=== PATIENT | female | born 1955 | race Caucasian/White ===

== ENCOUNTER → 2024-07-11 08:05 | Outpatient (REF) | payer MEDICARE, OTHER, SELFPAY | LOC: HWWDC 08:05 | PROVIDERS: ATTENDING PHYSICIAN Obstetrics & Gynecology Gynecology; FAMILY PHYSICIAN Family Medicine | DX: Z12.31 Encounter for screening mammogram for malignant neoplasm of breast (principal) | CPT/HCPCS: 77063; 77067 ==

== ENCOUNTER 2024-10-10 13:22 | Emergency (ER) | payer MEDICARE, OTHER, SELFPAY ==
[2024-10-10 13:25] VITALS: BP 168/99
[2024-10-10 15:09] VITALS: BMI 18.9
[2024-10-10 15:28] VITALS: BP 159/95
[2024-10-10 15:37] LABS: % Basophils 0.4 % (0-2); % Eosinophils 1.2 % (0-6); % Immature Granulocytes 0.5 % (0-0.5); % Lymphocytes 26.1 % (20.5-51.1); % Monocytes 10.9 % (1.7-9.3); % Neutrophils 60.9 % (42.2-75.2); Absolute Eosinophils 0.1 10^3/uL (0-0.7); Absolute Immature Granulocytes 0.1 10^3/uL (0-0.05); Absolute Lymphocytes 2.9 10^3/uL (1.2-3.4); Absolute Monocytes 1.2 10^3/uL (0.1-0.6); Absolute Neutrophils 6.7 10^3/uL (1.4-6.5); Hematocrit 46.6 % (37.0-47.0); Hemoglobin 15.9 g/dL (12.0-16.0); Mean Corp Hgb Conc. 34.1 g/dL (33.0-37.0); Mean Corpuscular Hgb 31.2 pg (27.0-31.0); Mean Corpuscular Volume 91.4 fL (81.0-99.0); Mean Platelet Volume 10.4 fL (7.4-10.4); Nucleated Red Blood Cells % 0 %; Platelet Count 309 10^3/uL (130-400); Red Cell Dist. Width 12.6 % (11.5-14.5); White Blood Cell Count 10.9 10^3/uL (4.8-10.8)
--- NOTE | 2024-10-10 15:41 | ED.GENMED ---
Addendum entered and electronically signed by Erasmo Hanks PA-C 10/12/24 06:08:
Urine culture with greater than 100,000 colony-forming units of gram-negative bacilli. On Keflex. Sensitivities pending
Original Note:
History of Present Illness
General
Chief Complaint: Bowel Problem
Source: patient
Exam Limitations: none
Time Seen by Provider: 10/10/24 14:52
Nursing documentation reviewed up to this point in time: agreed with
History of Present Illness
History of Present Illness:
Patient to ED wiht complaint of no bowel movement since . States starting on she felt very fatigued. THis lasted thru the weekend. SHe was seen by PCP and told to take miralax and mitesh, which she did do without results. she reports
she had gas pain over the and themiralax helped that. SHe reports eating very little. Had a burger on wednesday but nothing since. Denies fever/chills, n/v/d. No abdominal pain. Brought to ED by spouse for eval.
Past History
Past History
ED Past Medical History: [place]
ED Past Surgical History: Orthopedic and Urological
Social History
Tobacco: Non-smoker
Review of Systems
Review of Systems
Allergies reviewed?: Yes
All Other Systems: ROS reviewed and negative except as documented in HPI and ROS
Constitutional: Reports no symptoms
EENT: Reports no symptoms
Respiratory: Reports no symptoms
Cardiac: Reports no symptoms
ABD/GI: Reports constipated
: Reports no symptoms
Musculoskeletal: Reports no symptoms
Skin: Reports no symptoms
Neurological: Reports no symptoms
Psychiatric: Reports no symptoms
Phy Exam
General Physical Exam
General Presentation: well appearing and no apparent distress
General age: appears stated age
General Skin: warm and dry
General Habitus: normal
General Mental: alert
Gastrointestinal Exam
Gastrointestinal Exam: normal bowel sounds, non tender, soft, no organomegaly, no pulsatile mass and non distended
Musculoskeletal Exam
Musculoskeletal Exam: full ROM and neuro vasc intact
Skin Exam
Skin Exam: normal color, warm/dry and no rash
Psychiatric Exam
Psychiatric Exam: normal mood/affect
Course
Orders/Labs/Results
Orders:
Orders
10/10/24 15:09
Abdomen Xray - 1 View [CR Abdomen - 1 View] Urgent
Comment:
Reason For Exam: constipation
10/10/24 15:23
Complete Blood Count/With Diff Urgent
Comprehensive Metabolic Panel Urgent
Urinalysis Reflex To Culture Urgent
Date Specimen was Collected: 10/10/24
Time Specimen was Collected: 15:15
Urine Microscopic Reflex Cult Urgent
Urine Culture Urgent
REENA Source: U
Specimen Description:
Date Specimen was Collected: 10/10/24
Time Specimen was Collected: 15:15
10/10/24 16:22
CT Abd/pel W Iv And Oral Contr Urgent
Comment:
Reason For Exam: suspected SB ileus on xray, abd. distention
Iohexol [Omnipaque] See Protocol PO NOW STA
10/10/24 16:23
0.9% Sodium Chloride 1000 ml [Nss] 1,000 ml IV BOLUS
10/10/24 20:01
Cephalexin Monohydrate [Keflex] 500 mg PO NOW STA
Abnormal Lab Results
10/10/24
15:23
WBC 10.9 H 10^3/uL
(4.8-10.8)
MCH 31.2 H pg
(27.0-31.0)
Abs Immat Gran (auto) 0.1 H 10^3/uL
(0-0.05)
Absolute Neuts (auto) 6.7 H 10^3/uL
(1.4-6.5)
Absolute Monos (auto) 1.2 H 10^3/uL
(0.1-0.6)
Monocytes % 10.9 H %
(1.7-9.3)
Glucose 120 H mg/dl
(70-99)
ALT 36 H U/L
(0-35)
Ur Occult Blood Reflex 1+ A
(Negative)
Leukocyte Esterase Rfl 1+ A
(Negative)
Urine WBC (Reflex) 11-15 A /HPF
(0-5)
Urine Bacteria (Reflex) Moderate A
(Negative)
Urine Albumin (Reflex) 1+ A
(Neg - Trace)
10/10/24 15:23
10/10/24 15:23
Vital Signs
Initial and Last Documented VS:
Initial Vital Signs
Temp Pulse Resp BP Pulse Ox
98.5 F 76 18 168/99 98
10/10/24 13:25 10/10/24 13:25 10/10/24 13:25 10/10/24 13:25 10/10/24 13:25
Last Documented Vital Signs
Temp Pulse Resp BP Pulse Ox
98.5 F 62 16 140/59 98
10/10/24 13:25 10/10/24 20:10 10/10/24 20:10 10/10/24 20:10 10/10/24 20:10
*Radiology
Radiology exam reviewed: radiology read reviewed
*Pulse Oximetry
Patient hypoxic: no
*Critical Care Note
Total Time (30-74mins, 75-104mins- exclusive of procedures): Not Applicable
Update Note
Update Note:
Patient to ED wtih complaint of no stool x 4 days. Labs, abd. xray reviewed. No constipation noted on xray. Suspected ileus noted. She was sent to CT which suggests enteritis, no obstruction. Will discharge home, clear liquids to advance as
tolerated and follow up with PCP. Given instructions on s/s to return to ED and she is agreeable to plan.
ED Attending Note
-
Portions of this chart may have been created with voice recognition software.� Occasional wrong word or��sound alike� substitutions may have occurred due to the inherent limitations of voice recognition software.
Discharge Plan
Departure
Patient Disposition: Home (Routine Discharge)
Date of Disposition: 10/10/24
Time of Disposition: 19:59
Patient with high blood pressure during this ER visit?: No
Condition: Good
Covid-19: Not Applicable
Discharge Problem:
Enteritis, UTI (urinary tract infection)
Instructions: Urinary tract infections in adults, Clear Liquid Diet, Abdominal Pain
Prescriptions:
New
cephalexin 500 mg capsule
500 mg PO BID 7 Days Qty: 14 0RF
Referrals:
Walter Dee MD [Family Provider] - Follow up in 2-3 days
Activity Restrictions/Additional Instructions:
Return to the emergency department immediately for any changes in/worsening of your symptoms.
Interventions
Interventions:
*Risk Screen - Suicide Last Done: 10/10/24 13:25
*General Assessment Last Done: 10/10/24 13:25
*Neglect/Abuse Screening Last Done: 10/10/24 13:25
*ED- Fall Risk Assessment Last Done: 10/10/24 15:09
*ED COVID-19 Vaccine History Last Done: 10/10/24 13:25
*Nursing Disposition Last Done: 10/10/24 20:13
MA-Sbvjvn-Ufbgzavuti Assessment Last Done: 10/10/24 15:09
Discharge Date and Time
Discharge Date/Time: 10/10/24 20:15
Print Language: CYMRO
[2024-10-10 15:46] LABS: Urine Albumin 1+ (Neg - Trace); Urine Bilirubin Negative (Negative); Urine Character Clear (Clear); Urine Color Yellow; Urine Glucose Negative (Negative); Urine Ketone Negative (Negative); Urine Leukocyte 1+ (Negative); Urine Nitrite Negative (Negative); Urine Occult Blood 1+ (Negative); Urine Specific Gravity 1.015 (<1.030); Urine Urobilinogen Negative (Neg - 1+)
[2024-10-10 15:50] LABS: ALT (SGPT) 36 U/L (0-35); AST (SGOT) 34 U/L (14-36); Albumin 4.7 g/dl (3.5-5.0); Alkaline Phosphatase 71 U/L (38-126); Blood Urea Nitrogen 13 mg/dl (7-17); Calcium 9.7 mg/dl (8.4-10.2); Carbon Dioxide 26 mmol/L (22-30); Chloride 100 mmol/L (98-107); Estimated Creatinine Clearance 49 ml/min; Glucose 120 mg/dl (70-99); Potassium 4.4 mmol/L (3.5-5.1); Sodium 139 mmol/L (135-145); Total Bilirubin 1.2 mg/dl (0.2-1.3); Total Protein 7.6 g/dl (6.3-8.2); eGFR > 60.00
[2024-10-10 15:58] LABS: Urine Bacteria Moderate (Negative); Urine Red Blood Cell 0-2 /HPF (0-2); Urine Squamous Cell 0-2 /LPF (Few)
[2024-10-10] MEDS: OMNIPAQUE 50 ML PO (16:29)
[2024-10-10] MEDS: NSS 1000 IV (16:30)
[2024-10-10] MEDS: KEFLEX 500 MG PO (20:08)
[2024-10-10 20:10] VITALS: BP 140/59
== END 2024-10-10 20:15 | disposition home or self-care (01) ==
LOC: EMR 13:22
PROVIDERS: Nurse Practitioner; EMERGENCY PHYSICIAN Emergency Medicine; FAMILY PHYSICIAN Family Medicine
DX: K52.9 Noninfective gastroenteritis and colitis, unspecified (principal); N39.0 Urinary tract infection, site not specified; I25.2 Old myocardial infarction
CPT/HCPCS: 99284; 96360; 74018; 74177; 80053; 81003; 81015; 85025; 87077; 87086; 87186; Q9967